=== PATIENT | male | born 1995 ===

== ENCOUNTER 2018-10-05 18:05 | Emergency (ER) | payer OTHER ==
--- NOTE | 2018-10-05 18:51 | UC ---
Throat Pain/Nasal Luis Armando HPI - HPI Summary HPI Summary: 23 yo male presents with two complaints; 1) Over the last 3 days he has had a sore throat. He is eating, drinking, and tolerating po well. He has not taken anything OTC for his symptoms. Denies fever , chills, sinus symptoms, earache, or cough 2) About 5-6 days ago he noticed a rash to his right upper buttocks. Started mildly tender and burning, but has since improved. Has not spread. - History of Current Complaint Stated Complaint: THROAT COMPLAINT Time Seen by Provider: 10/05/18 18:50 Hx Obtained From: Patient Severity: Mild Pain Intensity: 2 Pain Scale Used: 0-10 Numeric - Allergies/Home Medications Allergies/Adverse Reactions: Allergies Allergy/AdvReac Type Severity Reaction Status Date / Time No Known Allergies Allergy Verified 10/05/18 18:56 Home Medications: Home Medications Clobetasol 0.05% OINT* 1 applic TOPICAL BID PRN 10/05/18 [History Confirmed ] PMH/Surg Hx/FS Hx/Imm Hx - Additional Past Medical History Additional PMH: None - Surgical History Surgical History: None - Family History Known Family History: Positive: None - Social History Occupation: Employed Full-time Lives: With Family Alcohol Use: Occasionally Substance Use Type: None Smoking Status (MU): Never Smoked Tobacco Review of Systems All Other Systems Reviewed And Are Negative: Yes Constitutional: Positive: Negative Skin: Positive: Rash Eyes: Positive: Negative ENT: Positive: Sore Throat Respiratory: Positive: Negative Cardiovascular: Positive: Negative Gastrointestinal: Positive: Negative Neurovascular: Positive: Negative Neurological: Positive: Negative Psychological: Positive: Negative Physical Exam - Summary Physical Exam Summary: GENERAL: NAD. WDWN. No pain distress. SKIN: RIGHT UPPER BUTTOCKS: 3.5cm cluster of mildly erythematous scabs and faint 1mm vesicles/blisters. Mildly TTP. No streaking or drainage. No abscess appreciated. HEENT: Head: AT/NC Eyes: Conjunctiva clear without inflammation or discharge. Ears: Hearing grossly normal. TMs intact, no bulging, erythema, or edema. Nose: Nasal mucosa pink and moist. NTTP maxillary and frontal sinus. Throat: Posterior oropharynx mild erythema. No tonsillar enlargement. No exudates. Uvula midline. No hoarse voice or muffled voice. NECK: Supple. Nontender. No lymphadenopathy. CHEST: CTAB. No r/r/w. No accessory muscle use. Breathing comfortably and in no distress. CV: RRR. Without m/r/g. Pulses intact. Cap refill <2seconds NEURO: Alert. PSYCH: Age appropriate behavior. Triage Information Reviewed: Yes Vital Signs: Vital Signs: Temp Pulse Resp BP Pulse Ox 98.5 F 69 16 129/77 97 10/05/18 18:48 10/05/18 18:48 10/05/18 18:48 10/05/18 18:48 10/05/18 18:48 Laboratory Tests 10/05/18 19:17 Group A Strep Rapid Negative Vital Signs Reviewed: Yes Throat Pain/Nasal Course/Dx - Course Course Of Treatment: Regarding his sore throat - suspect viral pharyngitis. Discussed viral vs bacterial causes with the pt and he prefers to be on antibiotics at this time. Regarding his buttocks rash - the appearance of this and the history appear most consistent with shingles. The lesions appear scabbed/crusted at this time and I believe the site is healing well. Will place him on acyclovir cream and have him keep the area covered until resolved. - Differential Dx/Diagnosis Provider Diagnosis: Pharyngitis, Shingles Discharge - Sign-Out/Discharge Documenting (check all that apply): Patient Departure All imaging exams completed and their final reports reviewed: No Studies - Discharge Plan Condition: Stable Disposition: HOME Prescriptions: Acyclovir OINT 5%(NF) [Zovirax Oint 5%(NF)] 1 applic TOPICAL QID #1 tube Amoxicillin PO (*) [Amoxicillin 875 MG (*)] 875 mg PO BID #14 tab Patient Education Materials: Shingles (ED), Pharyngitis (ED) Referrals: No Primary Care Phys,NOPCP [Primary Care Provider] - Additional Instructions: If you develop a fever, shortness of breath, chest pain, new or worsening symptoms - please call your PCP or go to the ED immediately. 1) Keep the area of shingles covered at all times until well healed (likely 5-7 days) - Billing Disposition and Condition Condition: STABLE Disposition: Home
== END 2018-10-05 19:47 | disposition home or self-care (01) ==
LOC: UCEAST 18:05
DX: J02.9 Acute pharyngitis, unspecified (principal); B02.9 Zoster without complications
CPT/HCPCS: 87651; 99202; G0463

== ENCOUNTER 2018-10-25 17:37 | Emergency (ER) | payer OTHER ==
--- NOTE | 2018-10-25 18:23 | UC ---
Throat Pain/Nasal Luis Armando HPI - HPI Summary HPI Summary: 23 yo male with painless white spot right tonsil x 4 days recently treated for pharyngitis - History of Current Complaint Chief Complaint: UCRespiratory Stated Complaint: THROAT COMPLAINT Time Seen by Provider: 10/25/18 18:10 Hx Obtained From: Patient Onset/Duration: Gradual Onset, Lasting Days Pain Intensity: 0 Pain Scale Used: 0-10 Numeric Cough: None Associated Signs & Symptoms: Positive: Negative - Epiglottits Risk Factors Epiglottis Risk Factors: Negative - Allergies/Home Medications Allergies/Adverse Reactions: Allergies Allergy/AdvReac Type Severity Reaction Status Date / Time No Known Allergies Allergy Verified 10/25/18 17:45 Home Medications: Home Medications Acyclovir [Acyclovir 5% TOPICAL] 5 % EX DAILY 10/25/18 [History Confirmed ] PMH/Surg Hx/FS Hx/Imm Hx Previously Healthy: Yes - Surgical History Surgical History: None - Family History Known Family History: Positive: Hypertension, Non-Contributory - Social History Alcohol Use: Weekly Substance Use Type: None Smoking Status (MU): Never Smoked Tobacco Review of Systems All Other Systems Reviewed And Are Negative: Yes Constitutional: Positive: Negative Skin: Positive: Negative Eyes: Positive: Negative ENT: Positive: Negative Respiratory: Positive: Negative Cardiovascular: Positive: Negative Gastrointestinal: Positive: Negative Genitourinary: Positive: Negative Motor: Positive: Negative Neurovascular: Positive: Negative Musculoskeletal: Positive: Negative Neurological: Positive: Negative Psychological: Positive: Negative Physical Exam Triage Information Reviewed: Yes Appearance: Well-Appearing, No Pain Distress, Well-Nourished Vital Signs: Initial Vital Signs Temp 98.2 F 10/25/18 17:46 Pulse 67 10/25/18 17:46 Resp 18 10/25/18 17:46 BP 125/79 10/25/18 17:46 Pulse Ox 98 10/25/18 17:46 Eyes: Positive: Conjunctiva Clear ENT: Positive: Hearing grossly normal, Nasal congestion, Nasal drainage, TMs normal, Uvula midline, Other - small right tonsil stone. Negative: Pharynx normal, Tonsillar swelling, Tonsillar exudate, Trismus, Muffled voice, Hoarse voice Neck: Positive: Supple, Nontender, No Lymphadenopathy Respiratory: Positive: Lungs clear, Normal breath sounds, No respiratory distress, No accessory muscle use Cardiovascular: Positive: RRR Musculoskeletal: Positive: ROM Intact, No Edema Neurological: Positive: Alert Psychological Exam: Normal Skin Exam: Normal Throat Pain/Nasal Course/Dx - Differential Dx/Diagnosis Provider Diagnosis: Tonsillith Discharge - Sign-Out/Discharge Documenting (check all that apply): Patient Departure All imaging exams completed and their final reports reviewed: No Studies - Discharge Plan Condition: Stable Disposition: HOME Referrals: No Primary Care Phys,NOPCP [Primary Care Provider] - Additional Instructions: What you are seeing is a tonsil stone or tonsillith warm salt water gargles if it becomes larger or causes symptoms you may need to see an ENT for removal Usually these are not symptomatic and don't require treatment - Billing Disposition and Condition Condition: STABLE Disposition: Home
== END 2018-10-25 18:30 | disposition home or self-care (01) ==
LOC: UCEAST 17:37
DX: J35.8 Other chronic diseases of tonsils and adenoids (principal)
CPT/HCPCS: 99211; G0463